=== PATIENT | female | born 1985 | race Caucasian/White ===

== ENCOUNTER 2018-04-05 15:04 | Emergency (ER) | payer MEDICAID ==
[2018-04-05] MEDS ORDERED: Ibuprofen TAB* 600 MG PO ONE (15:28)
[2018-04-05] MEDS ORDERED: Neomyc/Polym/HC 1% OTIC SUSP* **OTIC RIGHT EAR ONE (15:30)
[2018-04-05 15:33] VITALS: BP 103/71
--- NOTE | 2018-04-05 18:11 | ED ---
Throat Pain/Nasal Congestion - HPI Summary HPI Summary: Rt ear pain x few days. Itching, swollen - thinks she may have caused injury to the ear canal and she was itching it with her fingernail - saw some blood on her finger. Denies change in hearing, active bleeding from ear canal, dizziness , fever, nasal congestion, sore throat, headache, shortness of breath, chest pain, neck pain or stiffness. Has not tried anything for this discomfort at this time. Resides at [facility]. - History of Current Complaint Chief Complaint: EDEarPain Time Seen by Provider: 04/05/18 15:08 Hx Obtained From: Patient - Allergies/Home Medications Allergies/Adverse Reactions: Allergies Allergy/AdvReac Type Severity Reaction Status Date / Time No Known Allergies Allergy Verified 04/05/18 15:07 PMH/Surg Hx/FS Hx/Imm Hx Previously Healthy: Yes Endocrine/Hematology History: Denies: Hx Anticoagulant Therapy, Autoimmune Disease EENT History: Denies: Hx Hearing Problem, Hx Hearing Aid Psychiatric History: Reports: Hx Substance Abuse Infectious Disease History: No Infectious Disease History: Denies: Traveled Outside the [place] in Last 30 Days - Family History Known Family History: Positive: None - Social History Occupation: Unemployed Lives: Skilled Nursing - [facility] Alcohol Use: None Hx Substance Use: Yes - per pt, in remission Substance Use Type: Reports: Heroin, Other Substance Use Comment - Amount & Last Used: Crack Hx Tobacco Use: Yes Smoking Status (MU): Current Every Day Smoker Review of Systems Constitutional: Negative Eyes: Negative Positive: Ear Ache Cardiovascular: Negative Respiratory: Negative Gastrointestinal: Negative Skin: Negative Neurological: Negative All Other Systems Reviewed And Are Negative: Yes Physical Exam Triage Information Reviewed: Yes Vital Signs On Initial Exam: Initial Vitals Temp Pulse Resp BP Pulse Ox 98 F 71 16 100/56 99 04/05/18 15:05 04/05/18 15:05 04/05/18 15:05 04/05/18 15:05 04/05/18 15:05 Vital Signs Reviewed: Yes Appearance: Positive: Well-Nourished - Patient appears fatigued/sleepy however responds to questions appropriately Skin: Positive: Warm, Skin Color Reflects Adequate Perfusion, Dry Head/Face: Positive: Normal Head/Face Inspection Eyes: Positive: Other: - Injected sclera; eyelids are relaxed she appears sleepy ENT: Positive: TMs normal - Right EAC with mild edema and erythema - scant white discharge, tiny superficial abrasion within canal - no active bleeding; TM clear and intact. Negative: Nasal congestion, Nasal drainage, TM bulging, TM dull, TM red, Tonsillar swelling, Tonsillar exudate Neck: Positive: Supple, Nontender, No Lymphadenopathy Respiratory/Lung Sounds: Positive: Clear to Auscultation, Breath Sounds Present Cardiovascular: Positive: Normal, RRR Musculoskeletal: Positive: Normal, Strength/ROM Intact Neurological: Positive: Normal, Sensory/Motor Intact, Alert, Oriented to Person Place, Time, CN Intact II-III Psychiatric: Positive: Other - Relaxed, calm, cooperative Diagnostics - Vital Signs Vital Signs Temp Pulse Resp BP Pulse Ox 04/05/18 15:32 97.9 F 63 18 103/71 99 04/05/18 15:05 98 F 71 16 100/56 99 - Laboratory Lab Statement: Any lab studies that have been ordered have been reviewed, and results considered in the medical decision making process. EENT Course/Dx - Diagnoses Provider Diagnoses: Otitis externa Discharge - Sign-Out/Discharge Documenting (check all that apply): Discharge/Admit/Transfer - Discharge Plan Condition: Stable Disposition: HOME Prescriptions: Neomyc/Polym/HC 1% OTIC SUSP* [Cortisporin Otic Susp 1%*] 4 drop RIGHT EAR QID # 1 btl Patient Education Materials: Otitis Externa (ED) Referrals: [facility] [Outside] No Primary Care Phys,NOPCP [Primary Care Provider] - Additional Instructions: Use antibiotic eardrops 4 times a day for 10 days at the most do not exceed 10 days. You may aid in keeping this medication here by using cotton balls. Avoid putting anything else anterior such as Q-tips, objects to scratch or itch including her fingernail, etc. If your symptoms persist or worsen is important that she follow-up with her PCP. If you do not have a PCP may return to the emergency department or go to an urgent care for recheck. *If you develop swelling of your ear, headache, neck stiffness, difficulty swallowing or breathing, fever, return to the emergency department For prevention, avoid prolonged obstruction of your ear canals as this may trap moisture and trigger an infection like this again. Examples are wearing earbuds , holding a phone or other device up to your ear making it hot and trapping moisture/wetness. It is also important that you dry your ears after swimming or showering by using a towel - again, do not use Q-tips to prevent injury to your eardrum. If you continue to get repeat infection such as this, you may discuss further prevention with your PCP or an research methods instructor. - Billing Disposition and Condition Condition: STABLE Disposition: HOME
== END 2018-04-05 19:06 | disposition home or self-care (01) ==
LOC: ED 15:04
DX: H60.91 Unspecified otitis externa, right ear (principal); F17.200 Nicotine dependence, unspecified, uncomplicated
CPT/HCPCS: 99281; A9270-GY